=== PATIENT | female | born 1970 | race African-American/Black ===

== ENCOUNTER 2016-07-12 06:44 | Emergency (ER) ==
[2016-07-12 07:32] LABS: URINE CULTURE NEEDED? NO; URINE MICRO REVIEW NEEDED? NO; URINE SOURCE CLEAN CATCH
[2016-07-12 08:01] LABS: BILIRUBIN URINE NEGATIVE (NEGATIVE); BLOOD URINE NEGATIVE (NEGATIVE); COLOR YELLOW; GLUCOSE URINE NEGATIVE (NEGATIVE); LEUKOCYTES URINE NEGATIVE (NEGATIVE); NITRITE URINE NEGATIVE (NEGATIVE); PH URINE 6.5; PROTEIN URINE 50 mg/dL (NEGATIVE); SP GRAVITY URINE 1.037; TURBIDITY URINE CLEAR (CLEAR); UROBILINOGEN URINE 3 mg/dL (NORMAL)
[2016-07-12 08:02] LABS: UR EPITHELIAL CELLS <10 /HPF (<10); URINE BACTERIA 1+ /HPF; URINE RBC <10 /HPF (<10); URINE WBC <10 /HPF (<10)
[2016-07-12] MEDS ORDERED: ZOFRAN IV ONE (08:29)
[2016-07-12] MEDS ORDERED: NS 1,000 ML IV SCH (08:30)
[2016-07-12 08:42] LABS: MANUAL DIFF NEEDED? NO
[2016-07-12 08:48] LABS: BASO% 0.1 % (0.0-0.8); HEMOGLOBIN 15.2 g/dL (12.0-16.0); MCV 82.1 FL (81-99)
[2016-07-12 09:13] LABS: AGAP 16; ALBUMIN 4.2 g/dL (3.5-5.0); ALKALINE PHOSPHATASE 139 U/L (32-104); BUN 8 mg/dL (8-22); CALCIUM 9.8 mg/dL (8.8-10.2); CHLORIDE 102 mmol/L (98-107); COSMO 281; GOT 29 U/L (10-30); GPT 12 U/L (10-36); HEMATOCRIT 44.6 % (37.0-47.0); IMM GRAN# 0.04 X1000 (0.0-0.04); IMM GRAN% 0.4 % (0.0-0.5); LYMPH# 1.34 X1000 (1.2-3.4); MCHC 34.1 g/dL (33-37); MONO# 0.32 X1000 (0.11-0.59); MONO% 3.1 % (1.7-9.3); MPV 11.1 FL (7.4-10.4); NEUT% 83.4 % (42.2-75.2); PLT 329 X1000 (130-400); POTASSIUM 3.6 mmol/L (3.5-5.1); RBC 5.43 XMIL (4.2-5.4); SODIUM 141 mmol/L (136-145); TCO2 23 mmol/L (25-35); TOTAL BILIRUBIN 0.52 mg/dL (0.20-1.00); TOTAL PROTEIN 8.2 g/dL (6.3-8.3)
[2016-07-12] MEDS ORDERED: PHENERGAN IV ONE (10:04)
[2016-07-12] MEDS ORDERED: SODIUM CHLORIDE 0.9% INJ ONE (10:04)
--- NOTE | 2016-07-12 10:09 | PROVIDER DOCUMENTATION ---
HPI-General Adult - General Chief Complaint: Flu Symptoms Stated Complaint: flu sx Time Seen by Provider: 07/12/16 08:28 Source: patient Allergies/Adverse Reactions: Patient Allergies Allergy/AdvReac Type Severity Reaction Status Date / Time metoclopramide HCl * AdvReac Intermediate "turns me Verified 07/12/16 08:11 [From Reglan] into a wild woman" Home Medications: Home Medication List Medication Instructions Recorded Confirmed Last Taken Type Amlodipine Besylate [Norvasc] 5 mg PO QAM 06/19/13 07/12/16 06/11/15 History Pantoprazole Sodium [Protonix] 40 mg PO QAM 06/19/13 07/12/16 06/11/15 History - History of Present Illness -Gen Adult Nature of Presenting Problems: patient is a 46 y/o F that presents to the ER with body aches and n/v x 24 hours. patient reports vomiting all night. denies fever/chills, cough, or abdominal pain. Does have some nasal drainage. Location of Pain/Injury: reports: generalized Pain Radiation: reports: no radiation Quality of Pain: reports: aching Severity: reports: mild Onset/Duration: reports: gradual, 24 hours ago Timing: reports: still present, constant Context/Activities at Onset: reports: none Modifying Factors: improves with: nothing Associated Symptoms: reports: EENT symptoms, nausea, vomiting. denies: back/ neck pain, constipation, cough, fever/chills, genitourinary problems, headaches , muscle aches, rash, seizure, shortness of breath, swelling/mass in abdomen Similar Symptoms Previously?: No Recently seen or treated by another doctor?: No Review of Systems - Adult - REVIEW OF SYSTEMS - ADULT Constitutional: denies: chills, fever Eyes: reports: no symptoms reported Ears, Nose, Mouth & Throat: reports: sinus problem. denies: ear pain, throat pain, throat swelling Cardiovascular: denies: chest pain, palpitations, syncope Respiratory: denies: cough, shortness of breath, wheezing Gastrointestinal: reports: nausea, vomiting. denies: abdominal pain, diarrhea Genitourinary: reports: no symptoms reported Musculoskeletal: reports: muscle aches, muscle weakness Integumentary: reports: no symptoms reported Neurological: reports: no symptoms reported Psychiatric: reports: no symptoms reported Endocrine: reports: no symptoms reported Hematologic/Lymphatic: reports: no symptoms reported Allergic/Immunologic: reports: no symptoms reported All Other Systems: Reviewed and Negative Past History - Adult - PAST MEDICAL HISTORY-ADULT Review of Records: reports: Old Records Reviewed, Nursing Assessment Review, Medications Reviewed Cardiovascular: reports: HTN Gastrointestinal: reports: GERD - PRIOR SURGERIES/PROCEDURES Surgical/Procedure History: reports: cholecystectomy, , other (ablation ) - IMMUNIZATION STATUS Childhood Immunizations: See Nurse Assessment Flu Vaccine: See Nurse Assessment - FAMILY HISTORY Family History: reviewed, not pertinent - SOCIAL HISTORY Smoking: non-smoker Alcohol Use Frequency: occasionally Living Situation: family Physical Exam-General - PHYSICAL EXAM-ADULT Initial Vital Signs Reviewed: Yes - CONSTITUTIONAL General Appearance: alert, no apparent distress - EYES Eyes: PERRL/EOMI, pink conjunctivae - HEAD, EARS, NOSE, MOUTH & THROAT HENMT: normocephalic/atraumatic, TMs normal, pharynx normal, other (dry oral mucosa) - NECK Neck: full range of motion, normal inspection. negative: lymphadenopathy - RESPIRATORY Respiratory: lungs clear, normal breath sounds, no respiratory distress, no accessory muscle use - CARDIOVASCULAR Cardiovascular: regular rate, rhythm, no edema, no gallop, no murmur - GASTROINTESTINAL (ABDOMEN) Abdominal Exam: normal bowel sounds, non tender, soft, no organomegaly, no pulsatile mass - MUSCULOSKELETAL Back Exam: no CVA tenderness, no vertebral tenderness Extremity: normal range of motion, normal inspection, no pedal edema, normal capillary refill, pelvis stable - SKIN Integumentary: normal color, warm/dry - NEUROLOGIC Neurologic: grossly normal, no motor/sensory deficits - PSYCHIATRIC Psych/Mental Status: normal mood/affect, normal thought content, normal thought process, oriented x 3 Progress - PLAN OF CARE/RESULTS Progress/Plan/Lab Results: plan of care-labs, meds, fluids, xray 1005-patient request more nausea and pain meds. placed order Vital Signs Temp Pulse Resp BP Pulse Ox 07/12/16 11:04 87 14 149/13 98 07/12/16 08:12 98.4 F 91 H 20 142/100 100 07/12/16 06:49 98.3 F 86 18 144/99 99 metoclopramide HCl * [From Reglan] Adverse Reaction (Intermediate, Verified 08:11) "turns me into a wild woman" Amlodipine Besylate [Norvasc] 5 mg PO QAM 06/19/13 Pantoprazole Sodium [Protonix] 40 mg PO QAM 06/19/13 I&O 07/11/16 07/12/16 07/13/16 06:59 06:59 06:59 Output Total 20 Balance -20 Laboratory 07/12/16 07/12/16 07/12/16 08:38 08:38 06:59 WBC 10.29 RBC 5.43 H Hgb 15.2 Hct 44.6 MCV 82.1 MCH 28.0 MCHC 34.1 RDW Std Deviation 13.8 Plt Count 329 MPV 11.1 H Immature Gran % (Auto) 0.4 Neut % (Auto) 83.4 H Lymph % (Auto) 13.0 L Porter % (Auto) 3.1 Eos % (Auto) 0.0 Baso % (Auto) 0.1 Immature Gran # (Auto) 0.04 Neut # (Auto) 8.58 H Lymph # (Auto) 1.34 Porter # (Auto) 0.32 Eos # (Auto) 0.00 Baso # (Auto) 0.01 Sodium 141 Potassium 3.6 Chloride 102 Carbon Dioxide 23 L Anion Gap 16 BUN 8 Creatinine 0.8 Estimated GFR/1.73 m2 > 60 BUN/Creatinine Ratio 10 Glucose 115 H Calculated Osmolality 281 Calcium 9.8 Total Bilirubin 0.52 AST 29 ALT 12 Alkaline Phosphatase 139 H Total Protein 8.2 Albumin 4.2 Globulin 4.0 Albumin/Globulin Ratio 1.0 Urine Source CLEAN CATCH Urine Color YELLOW Urine Turbidity CLEAR Urine pH 6.5 Ur Specific [place] 1.037 Urine Protein 50 A Ur Glucose (Stick) NEGATIVE Ur Ketones (Stick) 20 A Urine Blood NEGATIVE Urine Nitrite NEGATIVE Urine Bilirubin NEGATIVE Urobilinogen Dipstick 3 A Urine Leukocytes NEGATIVE Urine WBC (Auto) <10 Urine RBC (Auto) <10 U Epithel Cells (Auto) <10 Urine Bacteria (Auto) 1+ Orders Category Date Time Status FLAT/UPRIGHT ABD/1 VIEW CHEST [RAD] Stat Exams 07/12/16 08:59 Taken CBC WITH ELECTRONIC DIFF [HEME] Stat Lab 07/12/16 08:38 Completed COMPREHENSIVE METABOLIC PANEL [CHEM] Stat Lab 07/12/16 08:38 Completed INFLUENZA SCREEN A/B Stat Lab 07/12/16 06:50 Completed URINALYSIS W/POSS RFLX CULT [URINALYSIS] Stat Lab 07/12/16 06:59 Completed 0.9% Sodium Chloride Inj [Ns] 1,000 ml Med 07/12/16 08:30 Active IV 250 mls/hr Amlodipine [Norvasc] Med 07/12/16 11:11 Discontinued 5 mg PO NOW ONE Amlodipine [Norvasc] Med 07/12/16 11:11 Discontinued 5 mg PO NOW ONE Ondansetron [Zofran] Med 07/12/16 08:29 Discontinued 4 mg IV NOW ONE Promethazine [Phenergan] Med 07/12/16 10:04 Discontinued 25 mg IV NOW ONE Sodium Chloride 0.9% Med 07/12/16 10:04 Discontinued 10 ml INJ NOW ONE pt will be d/c home f/u with pcp, rx given, pt was clinically stable, understood instructions and results - REASSESSMENT Reassessment #1 Time Reassessed: 10:38 Status: improving Reassessment Comment: resting comfortably after Phenergan, awaiting xray report - XRAY 1 XRAY Study: Chest, Abdomen Impression: Normal XRAY Interpretation: NAD Departure - Departure Time of Disposition Order: 11:12 DIAGNOSIS: Viral gastroenteritis Disposition: HOME 01 Certified Medical Emergency: Emergent Condition: Stable Additional Instructions: liquid diet today, then gradually increase diet push fluids ED Follow Up Instructions: You have been treated by a care provider in the Emergency Department. These instructions are being provided to you so you can have an understanding of how to care for yourself upon discharge. Upon discharge from the Emergency Department, you are responsible for making arrangements for follow-up care by a physician of your choice. Take all prescribed medications as directed. Return to the Emergency Department immediately for any new or worsening symptoms. You may call the Physician Referral phone number at [phone] to obtain a list of Physicians who are taking new patients. Referrals: Lanre Elias [Primary Care Provider] - Call for Appoint. 1-2days Instructions: Viral Gastroenteritis, [id number], Food Choices to Help Relieve Diarrhea, Adult, Clear Liquid Diet, [id number] Attestation - Scribe Verification/Attestation Scribe:: Tai Charles Acting as Scribe for:: Bhupinder Brandt Scribe documention review:: This chart was documented by a scribe and accurately reflects the service the provider performed and the decisions made by the provider. Physician Attestation - Physician Attestation I, the provider, attest to the following statement:: Bhupinder Brandt Physician documentation Attestation:: This documentation recorded by the scribe accurately reflects the service I personally performed and the decisions made by me.
[2016-07-12] MEDS ORDERED: NORVASC PO ONE ×2 (11:11)
[2016-07-12 12:28] VITALS: BP 164/98
--- NOTE | 2016-07-12 15:02 | Diag Imaging Result Document ---
PROCEDURE NAME: FLAT/UPRIGHT ABD/1 VIEW CHEST - 07/12/2016 FRONTAL CHEST X-RAY AND 2 VIEWS OF THE ABDOMEN: COMPARISON: 06/19/2013. FINDINGS: The chest is clear. There are cholecystectomy clips. No bowel obstruction or free air. IMPRESSION: No acute disease.
== END 2016-07-12 12:28 | disposition home or self-care (01) ==
LOC: ED 06:44
DX: A08.4 Viral intestinal infection, unspecified (principal); M79.1 Myalgia; R11.2 Nausea with vomiting, unspecified; M62.81 Muscle weakness (generalized); I10 Essential (primary) hypertension; K21.9 Gastro-esophageal reflux disease without esophagitis; Z79.899 Other long term (current) drug therapy
CPT/HCPCS: 74022; 80053; 81001; 85025; 87804; 96374; 96375; J2405; J2550; J7030